=== PATIENT | male | born 1950 | race Caucasian/White ===

== ENCOUNTER 2022-06-01 08:44 | Observation (INO) ==
--- NOTE | 2022-05-08 16:04 | PAT Medication Instructions ---
Medication Instructions Date of Service May 08, 2022 Home Medications clopidogrel 75 mg tablet 75 mg PO QAM multivitamin (Daily Multi-Vitamin tablet) 1 tab PO HS tretinoin 0.1 % topical cream 1 applic topical QAM PRN Rash PreserVision AREDS) 1 cap PO BID calcium phosphate,dibasic 77 mg-vitamin D3 400 unit tablet 1 tab PO QAM cyanocobalamin (vitamin B-12) 1,000 mcg tablet (Vitamin B-12) 1,000 mcg PO QAM finasteride 5 mg tablet 5 mg PO QDL gabapentin 300 mg tablet 300 mg PO BID gabapentin 400 mg tablet 400 mg PO BID pantoprazole 20 mg tablet,delayed release 20 mg PO QAM ASK your prescriber and surgeon clopidogrel 75 mg tablet 75 mg PO QAM (in order for spinal anesthesia, clopidogrel needs to be stopped 7 days before surgery. Please check if okay with doctor that prescribes this to you) STOP taking 2 weeks before surgery (or as soon as possible if surgery is within 2 weeks) PreserVision AREDS) 1 cap PO BID calcium phosphate,dibasic 77 mg-vitamin D3 400 unit tablet 1 tab PO QAM STOP taking 24 hours before surgery tretinoin 0.1 % topical cream 1 applic topical QAM PRN Rash DO NOT take the morning of surgery calcium phosphate,dibasic 77 mg-vitamin D3 400 unit tablet 1 tab PO QAM cyanocobalamin (vitamin B-12) 1,000 mcg tablet (Vitamin B-12) 1,000 mcg PO QAM Take morning of surgery With a small sip of water, OTHERWISE NOTHING TO EAT OR DRINK AFTER MIDNIGHT: finasteride 5 mg tablet 5 mg PO QDL gabapentin 300 mg tablet 300 mg PO BID gabapentin 400 mg tablet 400 mg PO BID pantoprazole 20 mg tablet,delayed release 20 mg PO QAM Take evening before surgery multivitamin (Daily Multi-Vitamin tablet) 1 tab PO HS gabapentin 300 mg tablet 300 mg PO BID gabapentin 400 mg tablet 400 mg PO BID Other Notes If you have any questions please call us at [phone] or [phone] or [phone] or [phone]
--- NOTE | 2022-05-13 11:31 | Anesthesiology Consultation ---
Date of Service May 13, 2022 Assessment & Plan (1) Encounter for pre-operative examination: - will attempt to obtain most recent cardiology office note. - COVID screening: Per assessment on 05/13/2022: Travel screen negative, no known COVID-19 positive contacts or current COVID-19 related symptoms in past 2 weeks. Pt vaccinated. Surgeon arranging preop COVID testing, scheduled 05/28/2022. Awaiting results. Chart Review Chart Review: Pending: Refer to Additional Notes / Consult section and Patient seen in Pre Admission Testing Teaching & Discussion Pre-Anesthesia Teaching/Discussion Notes: Instructed NPO after midnight before surgery, except medications with 15 cc of water. Medication instructions provided according to the PAT guidelines. History Surgery Operation Date: 06/01/22 13:20 Proposed Procedures p Right Total Hip Arthroplasty Anterior - Elliot Evans DO Height/Weight Height: 5 ft 10 in Weight: 77.2 kg Allergies Allergy/AdvReac Type Severity Reaction Status Date / Time amoxicillin Allergy Mild Rash Verified 05/13/22 11:45 Medications Home Medications Medication Instructions Recorded Confirmed Last Taken clopidogrel 75 mg tablet 75 mg PO QAM 09/05/20 05/06/22 Unknown multivitamin (Daily Multi-Vitamin 1 tab PO HS 09/05/20 05/06/22 Unknown tablet) tretinoin 0.1 % topical cream 1 applic topical QAM PRN Rash 09/05/20 05/06/22 Unknown vitamins A,C,Q-[id number]-yswwzo 14,320 1 cap PO BID 09/05/20 05/06/22 Unknown unit-226 mg-200 unit capsule (PreserVision AREDS) calcium phosphate,dibasic 77 1 tab PO QAM 05/06/22 05/06/22 Unknown mg-vitamin D3 400 unit tablet cyanocobalamin (vitamin B-12) 1,000 mcg PO QAM 05/06/22 05/06/22 Unknown 1,000 mcg tablet (Vitamin B-12) finasteride 5 mg tablet 5 mg PO QDL 05/06/22 05/06/22 Unknown gabapentin 300 mg tablet 300 mg PO BID 05/06/22 05/06/22 Unknown gabapentin 400 mg tablet 400 mg PO BID 05/06/22 05/06/22 Unknown pantoprazole 20 mg tablet,delayed 20 mg PO QAM 05/06/22 05/06/22 Unknown release Past Medical History Medical History (Updated 05/13/22 @ 12:15 by Nayely Renteria PA-C) Esophageal stricture GERD (gastroesophageal reflux disease) controlled, stable per pt On anticoagulant therapy plavix daily Palpitations rare, chronic, denies change or worsening, follows with [facility]ology Dr. Winters PFO with atrial septal aneurysm TIA (transient ischemic attack) 2014-PFO with atrial septal aneurysm, follows with [facility] cardio Dr. Winters Patient denies h/o seizures, heart attack, heart failure, DM, HTN, blood clots or blood transfusions. 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 Physical Exam Vital Signs Vitals BP 125/71 P 70 TEMP 98.4 SP02 95% on RA RESP 17 Physical Full cervical extension range of motion without pain TMD 3.5 finger breadths Mallampati Score 2 Dentition: intact, one implant right lower side, several caps/crowns-unknown locations per pt; denies chipped or loose teeth, bridges Lungs: normal respiratory effort. Clear throughout to auscultation, no adventitious breath sounds Cardiac: regular rate and rhythm, no murmurs noted Carotid arteries: negative bruit bilat Lab Results Anesthesia Preop Results Results Anesthesia Widget: WBC 5.25 K/ul (4.8-10.8) 05/13/22 Hgb 14.8 g/dl (14.0-18.0) 05/13/22 Hct 43.2 % (40.1-51.0) 05/13/22 Plt 198 K/uL (130-400) 05/13/22 Na 137 mmol/L (136-145) 05/13/22 K 4.6 mmol/L (3.5-5.1) 05/13/22 Cl 105 mmol/L (98-107) 05/13/22 CO2 28 mmol/L (21-32) 05/13/22 BUN 19 mg/dl (6-23) 05/13/22 Creat 1.12 mg/dl (0.6-1.4) 05/13/22 Glucose Level 101 mg/dl (70-99(Fasting)) H 05/13/22 PT 10.5 Seconds (9.0-12.0) 05/13/22 PTT 27.5 Seconds (21.0-31.0) 05/13/22 INR 1.0 (0.9-1.1) 05/13/22 Blood Type O Positive 05/13/22 Antibody Screen NEGATIVE 05/13/22 Testing Electrocardiogram Date: 10/08/21 NSR, rate 66 bpm Incomplete RBBB Chest X-Ray Date: 05/13/22 The lungs are clear. Cardiac silhouette is normal in size. No pleural effusions. No pneumothorax. IMPRESSION: No acute process. Echocardiogram Date: 09/24/17 EF 64% Mild cLVH No regional wall motion abnormality Grade I diastolic dysfunction Mild mitral regurgitation Mild tricuspid regurgitation Atrial septal aneurysm, bubble study was not performed, previously documented PFO
[~2022-06-01 08:44] MED LIST: BUPIVACAINE 0.5 % 5 MG/1 ML PF 10ML VIAL ONE; FAMOTIDINE 20 MG TAB PO SCH; GABAPENTIN 300 MG CAP PO SCH; Ketorolac (*for OR use only*) 30 MG, dexAMETHasone 4 MG, KETAMINE HCL (**OR use only) 1... INFIL SCH; LR 500ML BOLUS, THEN 15ML/HR IV SCH; LR 60ML/HR IV SCH; TRANEXAMIC ACID 1,000 MG **IV Intra-op IV SCH; TRANEXAMIC ACID 1,000 MG **IV Pre-op IV SCH; dexAMETHasone 4 MG TAB PO SCH
[2022-06-01] MEDS ORDERED: LIDOCAINE 2% MPF LOCAL 5 ML VIAL INFIL ONE (09:49)
[2022-06-01] MEDS ORDERED: fentaNYL citrate 100 MCG/2 ML VIAL ONE (09:49)
[2022-06-01] MEDS ORDERED: MIDAZOLAM HCL 1 MG/ML 2ML VIAL ONE (09:49)
[2022-06-01] MEDS ORDERED: PROPOFOL IV EMULSION 10 MG/ML 20 ML VIAL IV ONE (09:49)
[2022-06-01] MEDS ORDERED: ePHEDrine sulfate 50 MG/ML SYR ONE (09:49)
[2022-06-01] MEDS ORDERED: ceFAZolin 2,000 MG/15 ML IV PUSH IV ONE (11:10)
--- NOTE | 2022-06-01 11:15 | History & Physical Bridge Note ---
Date of Service June 01, 2022 History & Physical Bridge Note I have examined the patient, reviewed the History & Physical and in the interval since the performance of the History & Physical I have noted the following changes of clinical significance: no changes noted
[2022-06-01] MEDS ORDERED: ORTHO JOINT ANESTHETIC ONE (12:08)
[2022-06-01] MEDS ORDERED: ATROPINE SULFATE 0.1 MG/ML 10ML SYR IV PRN (12:26)
[2022-06-01] MEDS ORDERED: fentaNYL citrate 100 MCG/2 ML VIAL IV PRN (12:26)
[2022-06-01] MEDS ORDERED: ONDANSETRON INJ 2 MG/ML 2 ML VIAL IV PRN ×2 (12:26→15:26)
[2022-06-01] MEDS ORDERED: ePHEDrine sulfate 50 MG/ML AMP IV PRN (12:26)
--- NOTE | 2022-06-01 13:47 | Operative Report ---
PG Post Operative Report Pre & Post Diagnosis Operation Date: 06/01/22 11:15 Pre-Op Diagnosis: Degenerative Joint Disease Right Hip Post-Op Diagnosis: Degenerative Joint Disease Right Hip I identified the patient and participated in the time-out.: Yes Procedure Operation Date: 06/01/22 11:15 Actual Procedures p Right Anterior Total Hip Arthroplasty(Right) - Elliot Evans DO Surgeon Elliot Evans DO Rn Disease Management Elliot Perez PA-C Estimated Blood Loss 200 Findings Consistent with Post-Op Diagnosis Specimens Right femoral head Description of Procedure Implants used I used a ZimmerBiomet total hip arthroplasty system with a size 6.5 standard offset Avenir Complete stem, a 54 mm G7 cup with a 25mm screw, an E1 poly ethylene liner, a 40 mm ceramic head with a +7 neck. Heriberto arrived at the hospital for the above procedure. He was seen in the preoperative holding area and the operative extremity was identified and signed. He was given a spinal anesthetic, a preoperative antibiotic, and TXA. He was then taken back to the operating room and laid on the table in the supine position. He was given basic sedation. The operative leg was secured to a Puristst leg positioner. The hip was then prepped and draped in sterile fashion. A timeout was done and the patient and the operative extremity was properly identified. An anterior approach was used. Dissection was taken down through the fascia and the tensor muscle belly was retracted laterally and the rectus was retracted medially. The circumflex vessels were identified and ligated. The capsule was then incised and tagged for later repair. The femoral neck was then cut and the femoral head was removed. The acetabulum was exposed. Time was spent doing a complete circumferential labral release. Sequential reaming of the acetabulum up to a size 53 reamer was done. Final reamings were done under fluoroscopy to ensure appropriate version. A Biomet 54 mm G7 cup was then impacted into place. A single 25 mm screw was placed. The E1 polyethylene liner was then snapped into place. Surrounding soft tissues were then injected with 100 cc of an orthopedic pain control cocktail. The proximal femur was then exposed. Sequential broaching up to a size 6.5 broach was done. Off that broach a size 40 head with a +7 neck was trialed. The hip was reduced and fluoroscopic images showed anatomic alignment of the implants in acceptable length. The broach was removed. The final size 6.5 standard offset Avenir Complete stem was then impacted into place. A ceramic 40 mm head with a +7 neck was then impacted onto the stem and the hip was reduced. Final fluoroscopic images showed anatomic alignment of the hip. The capsule was then closed with #1 Vicryl suture. A dilute betadyne lavage was then done for 3 minutes. The joint was then irrigated with normal saline solution. The fascia was closed with #1 PDS suture. Skin was closed with 2-0 Vicryl, carla, and a Silverlon dressing. He was then transferred to a hospital bed and taken to the post anesthesia care unit in stable condition. He tolerated the procedure well. Elliot Perez PA-C, was present for the entire procedure. He was critical for patient positioning, prepping, draping, retraction exposure, wound closure and application of sterile dressing. I attest to the content of the Intraoperative Record and any orders documented therein. Any exceptions are noted below.
--- NOTE | 2022-06-01 14:22 | Fluoroscopy Report ---
FL hip RT 1V CLINICAL HISTORY: RT ANTERIOR TOTAL TECHNIQUE: 2 views were obtained with the C-arm in the OR with the above procedure. Total fluoroscopy time was 11 seconds. Total skin dose was 1.3 mGy. Comparison: None available at the time of this dictation. FINDINGS/IMPRESSION: Intraoperative images were obtained of right anterior total hip arthroplasty. Please correlate with intraoperative fluoroscopy and operative report. ACT 112: Negative or not required by law. Electronically signed by: Chester Fernandez M.D. 06/01/2022 2:20 PM
--- NOTE | 2022-06-01 14:43 | XRay Report ---
XR hip 1V RT w pelvis HISTORY: 72 years-old Male IN PACU - Post Surgical right hip total joint arthroplasty COMPARISON: Fluoroscopic images of the right hip of same day TECHNIQUE: AP view of the pelvis with 2 views of the right hip FINDINGS: Severe left hip osteoarthritis. Satisfactory alignment of the right hip total joint arthroplasty. No acute fracture. Lateral skin carla with expected postoperative soft tissue swelling and deep tissue air. IMPRESSION: Right hip total joint arthroplasty with expected postoperative changes. ACT 112: Negative or not required by law. The above report was generated using voice recognition software. It may contain grammatical, syntax o r spelling errors. Electronically signed by: Roberto Fish M.D. 06/01/2022 2:42 PM
--- NOTE | 2022-06-01 14:57 | Anesthesiology Progress Note ---
Date of Service June 01, 2022 Anesthesia Post Procedure Vital Signs Vital Signs: Temp Pulse Pulse Resp BP Pulse Ox O2 Del Method 06/01/22 14:55 78 16 113/67 95 Room Air 06/01/22 14:45 78 18 112/65 96 Room Air 06/01/22 14:35 85 20 113/65 95 Room Air 06/01/22 14:25 85 20 105/67 95 Room Air 06/01/22 14:15 83 19 112/70 95 Room Air 06/01/22 14:08 36.3 C L 89 20 110/66 98 Room Air 06/01/22 09:11 36.9 C 56 L 18 129/79 97 Room Air Pain Intensity Right Hip: Pain Intensity: 0 Transfer of Care Handoff Completed per policy Notes Mental Status: alert / awake / arousable Patient Amnestic to Procedure: Yes Nausea / Vomiting: adequately controlled Pain: adequately controlled Airway Patency, RR, SpO2: stable & adequate BP & HR: stable & adequate Hydration State: stable & adequate Neuraxial Anesthesia: was administered and sensory block is resolving Anesthetic Complications: no major complications apparent and Pt Satisfied with anesthetic care
[2022-06-01] MEDS ORDERED: NALOXONE HCL 0.4 MG/1 ML VIAL/CARP IV PRN (15:26)
[2022-06-01] MEDS ORDERED: MAGNESIUM HYDROXIDE SUSP 30 ML UDC PO PRN (15:26)
[2022-06-01] MEDS ORDERED: bisacodyL 10 MG SUPP PR PRN (15:26)
[2022-06-01] MEDS ORDERED: METOCLOPRAMIDE HCL INJ 5 MG/ML 2 ML VIAL IV PRN (15:26)
[2022-06-01] MEDS ORDERED: HYDROmorphone INJ 0.5 MG/0.5 ML SYR IV PRN (15:26)
[2022-06-01] MEDS ORDERED: oxyCODONE HCL IR 5 MG TAB (IMMEDIATE RELEASE) PO PRN (15:26)
[2022-06-01] MEDS: SODIUM CHLORIDE 0.9% 1000ML 1,000 ML IV SCH (15:39)
[2022-06-01] MEDS: GABAPENTIN 300 MG CAP PO SCH (16:19)
[2022-06-01] MEDS: KETOROLAC TROMETHAMINE 15 MG/ML VIAL IV SCH ×2 (16:21→21:31)
[2022-06-01] MEDS ORDERED: Nursing to Pharmacy Communication SCH (18:00)
[2022-06-01] MEDS ORDERED: SENNA 8.6 MG TAB PO SCH (21:00)
[2022-06-01] MEDS: ceFAZolin 2000MG 2,000 MG/15 ML SYR IV SCH (21:30)
[2022-06-01] MEDS: ACETAMINOPHEN 500 MG TAB PO SCH (21:31)
[2022-06-01] MEDS: DOCUSATE SODIUM 100 MG CAP PO SCH (21:31)
[2022-06-01] MEDS: GABAPENTIN 400 MG CAP PO SCH (21:32)
[2022-06-02] MEDS: SODIUM CHLORIDE 0.9% 1000ML 1,000 ML IV SCH (01:16)
[2022-06-02] MEDS: KETOROLAC TROMETHAMINE 15 MG/ML VIAL IV SCH ×2 (03:39→09:31)
[2022-06-02] MEDS: ceFAZolin 2000MG 2,000 MG/15 ML SYR IV SCH (03:40)
[2022-06-02] MEDS: ACETAMINOPHEN 500 MG TAB PO SCH (05:42)
--- NOTE | 2022-06-02 06:55 | Orthopedic Progress Note ---
Date of Service June 02, 2022 Assessment & Plan (1) Status post right hip replacement: Overall he is doing well. He is not having much pain in the right hip. He is on Plavix. He will be seen by physical therapy today for ambulation and range of motion exercises. He can be discharged home later today. He will follow-up with orthopedics in 2 weeks. Lio Louis was seen and examined at bedside this morning. Overall is doing very well. Is not having much pain in the right hip. He has been up and ambulating. He has no complaints.. Review of Systems All systems reviewed & are unremarkable except as noted in HPI & below. Physical Exam On physical examination of the right hip, the dressing is clean and dry. His leg is out full extension. He is active dorsiflexion plantarflexion of the right ankle.. Results & Data Results & Data Laboratory Results . Diagnostic Findings Postoperative x-rays of the right hip show the prosthesis to be in anatomic alignment without any evidence of fracture, screws, or loosening. PG Care Time/CCT Total # of Minutes Spent Total Time Spent with Patient: Total time spent is greater than 50% in coordination of care (as documented) at patient's floor/unit and/or counseling patient: Coding Level of Care Code 78668 Post Operative Follow-Up Diagnoses Status post right hip replacement Z96.641
--- NOTE | 2022-06-02 06:56 | Discharge Summary ---
Date of Service June 02, 2022 Principal Diagnosis Same as "Discharge Diagnosis" noted below under Discharge Instructions. Discharge Exam On physical examination of the right hip, the dressing is clean and dry. His leg is out full extension. He is active dorsiflexion plantarflexion of the right ankle.. Discharge Data Procedures Performed Operation Date: 06/01/22 11:15 Actual Procedures p Right Anterior Total Hip Arthroplasty(Right) - Elliot Evans DO Ordered Studies 06/01/22 11:15 FL hip RT 1V Routine Hospital Course (1) Status post right hip replacement: On June 01, 2022 Heriberto arrived at [facility] and underwent a right hip replaced without complication. He had a spinal anesthetic. Postoperatively he was kept on Plavix for anticoagulation. His hospital course was uneventful. On postop day #1, his vital signs were stable and his pain was well controlled. He was able to participate well with physical therapy doing ambulation and range of motion exercises. He was then discharged home. He will follow-up with orthopedics in 2 weeks. PG Care Time/CCT Total # of Minutes Spent Total Time Spent with Patient: Total time spent is greater than 50% in coordination of care (as documented) at patient's floor/unit and/or counseling patient: Discharge Plan Discharge Items Patient Disposition: Home - Home Health Services Reason For Visit: Degenerative Joint Disease Right Hip Discharge Diagnosis: Right hip replacement Activity: As commented below Non-emergency contact: Surgeon Call non-emergency contact if: your wound has increased redness and your wound has increased drainage Follow-up/Referrals: Seven Tate MD [Primary Care Provider] - Diet: Regular Addtl Attending Provider Instructions: Activity and Therapy Recommendations: * If you are using [facility] then therapy will be provided at your home until they feel you have accomplished all of your goals. * If you are using [facility] then Physical Therapy will be provided until they feel you are ready to start Outpatient Physical Therapy. * If you are not using home therapy then Outpatient Physical Therapy should start about 3-5 days from your day of surgery. Therapy will last about 6-10 weeks * You were shown a series of exercises in the hospital. Do these exercises three times each day including the exercises you were shown in physical therapy. * Get up and walk several times each day.~ For the first four weeks, try not to stand or walk for more than one hour at a time. If you do stand or walk for more than one hour, you will not hurt anything, but your leg will likely swell.~~ * As you feel comfortable, you may change from the walker or crutches to a cane and~then to independent walking. Medications: * Narcotic You will likely be sent home from the hospital with a prescription for the narcotic pain medication that worked best throughout your stay. * Other medications may be prescribed for specific circumstances. If you have any questions, please call the office at . * Resume previous home medications unless otherwise instructed TEDs/Elastic Stockings: The white elastic stockings help limit swelling and prevent blood clots from forming in your legs. The more you wear them, the more they work. Wear them for six weeks. Dressing Care: Leave the Silverlon dressing in place for 7 days. After 7 days you may remove the dressing. If the incision is not draining then you may leave the carla open to air. If there is a little bit of drainage or if the carla are getting stuck on your clothing then cover the incision with a dry dressing. The carla will be removed at your 2 week follow-up appointment. Showering: You may shower with the Silverlon dressing in place. Do not let the shower spray hit the dressing directly. Pat the Silverlon dressing dry. If the dressing becomes wet underneath, then simply remove the dressing. Keep the incision dry until you are 7 days out from the day of surgery. After 7 days you may remove the Silverlon dressing and shower with the carla exposed. Let soapy water run over the carla and pat them dry. Do not scrub or soak the incision. Things To Watch For: * Drainage from the incision site that occurs more than one week after your surgery. * Increased redness at the incision site. * Fever above 102 degrees Fahrenheit. * Unusual chest pain or shortness of breath. * Call [facility] at with any of the above problems Follow-Up Visit: Follow-up with Dr. Evans's PA (Elliot Perez) 2-3 weeks after your day of surgery. He will remove your carla and answer any questions. If you have any additional questions or concerns, Dr Evans is usually in the office at the same time and will be available An appointment was probably scheduled when you signed-up for surgery in the office. If you have any questions call Office Instructions: More detailed instructions as well as Frequently Asked Questions were provided in a folder by our office when you signed-up for surgery. Please review these instructions when you get home. If you have any further questions or concerns, please feel free to call the office at [phone] Pending Studies at Discharge: No Stand-Alone Forms: [facility], Smoking Cessation Medications and DC Order Prescriptions: New oxycodone-acetaminophen 5-325 mg tablet 1 tab PO Q6H PRN (Reason: pain) Qty: 30 0RF Continued clopidogrel 75 mg tablet 75 mg PO QAM multivitamin [Daily Multi-Vitamin] Tablet 1 tab PO HS PreserVision AREDS [id number],320-226-200 [id number] capsule 1 cap PO BID tretinoin 0.1 % cream 1 applic topical QAM PRN (Reason: Rash) cyanocobalamin (vitamin B-12) [Vitamin B-12] 1,000 mcg Tablet 1,000 mcg PO QAM pantoprazole 20 mg Tablet,Delayed Release (Dr/Ec) 20 mg PO QAM Vitamin D (with calcium) 77-400 mg-unit Tablet 1 tab PO QAM gabapentin 300 mg Tablet 300 mg PO BID Rx Instructions: lunch and dinner gabapentin 400 mg Tablet 400 mg PO BID Rx Instructions: QAM, HS finasteride 5 mg tablet 5 mg PO QDL Discharge Orders: Discharge Order (Routine); Ordered 06/02/22 Ordered By: Elliot Evans Admission Data Admit Date/Time: 06/01/22 14:12 Attending Provider: Elliot Evans Admit Provider: Elliot Evans Primary Care Provider: Seven Tate
[2022-06-02] MEDS: DOCUSATE SODIUM 100 MG CAP PO SCH (07:45)
[2022-06-02] MEDS: GABAPENTIN 400 MG CAP PO SCH (07:46)
[2022-06-02] MEDS ORDERED: dexAMETHasone 4 MG TAB PO SCH (08:00)
[2022-06-02] MEDS ORDERED: CLOPIDOGREL BISULFATE 75 MG TAB PO SCH (09:00)
[2022-06-02] MEDS ORDERED: MULTIVITAMIN TAB PO SCH (09:00)
[2022-06-02] MEDS ORDERED: CYANOCOBALAMIN (B-12) 500 MCG TABLET PO SCH (09:00)
[2022-06-02] MEDS ORDERED: FINASTERIDE 5 MG TAB PO SCH (11:30)
[2022-06-02] MEDS: GABAPENTIN 300 MG CAP PO SCH (12:10)
== END 2022-06-02 13:31 | disposition home health service (06) ==
LOC: 3E 08:44 → ASU 08:44